=== PATIENT | male | born 1965 | race Caucasian/White ===

== ENCOUNTER → 2018-11-18 19:20 | Outpatient (REF) | payer OTHER, SELFPAY ==
[2018-11-18 20:58] LABS: Urine N gonorrhoeae NOT DETECTED
[2018-11-18 21:04] LABS: Urine Chlamydia NOT DETECTED
== END ==
LOC: LAB 19:20
PROVIDERS: Visit Provider Physician Assistant
DX: Z11.3 Encounter for screening for infections with a predominantly sexual mode of transmission (principal)
CPT/HCPCS: 87491; 87591